=== PATIENT | female | born 1955 | race Caucasian/White ===

== ENCOUNTER 2022-06-16 07:03 | Observation (INO) | payer MEDICARE, OTHER ==
[~2022-06-16] VITALS: Ht 167.6 cm; Wt 91.6 kg
[2022-06-16 08:12] VITALS: BP 134/76; PULSE 79; TEMP 97.2
[2022-06-16] MEDS ORDERED: LEXAPRO 10MG10 MG PO (08:50)
[2022-06-16] MEDS ORDERED: MOBIC15 MG PO (08:50)
[2022-06-16] MEDS ORDERED: GLUCOSAMINE & C1 CA2 PO (08:51)
[2022-06-16] MEDS ORDERED: OMEGA-3 FISH1000 MG PO (08:51)
[2022-06-16] MEDS ORDERED: CALCIUM 600MG+D1 TAB PO (08:52)
[2022-06-16] MEDS ORDERED: MASON NATURAL2000 IU PO (08:53)
[2022-06-16] MEDS ORDERED: IRON TABLETS325 MG PO (08:54)
[2022-06-16] MEDS ORDERED: HCTZ12.5TAB PO (08:54)
[2022-06-16 15:20] VITALS: BP 134/79; PULSE 69; TEMP 97.1
[2022-06-16 16:00] VITALS: BP 131/67; PULSE 69; TEMP 97.1
[2022-06-16 20:05] VITALS: BP 133/59; PULSE 91; TEMP 98.5
[2022-06-17 00:33] VITALS: BP 115/61; PULSE 78; TEMP 98.6
[2022-06-17 03:45] VITALS: BP 113/62; PULSE 74; TEMP 97.8
[2022-06-17 07:06] LABS: BASO % 0.1 % (0.0-2.0); EOS % 0.1 % (0.0-4.0); GRAN # 7.4 K/mm3 (1.4-6.5); GRAN % 79.4 % (42.2-75.2); HEMOGLOBIN 10.1 g/dl (12.5-16.0); LYMPH # 0.9 K/mm3 (1.2-3.4); MEAN CELL VOLUME 85 fl (80.0-100.0); MEAN CORPUSCULAR HEMOGLOBIN 29 pg (27-31); MEAN CORPUSCULAR HGB CONC 34 g/dl (33.0-37.0); MEAN PLATELET VOLUME 10.1 fl (7.4-10.4); MONO # 0.9 K/mm3 (0.1-0.6); MONO % 9.8 % (1.7-9.3); PLATELET COUNT 208 K/mm3 (130-400); RED BLOOD COUNT 3.48 M/mm3 (4.10-5.30); REDCELL DISTRIBUTION WIDTH-CV 13.5 % (11.5-14.5)
[2022-06-17 07:17] LABS: ALBUMIN 3.1 gm/dL (3.4-4.8); BILIRUBIN,TOTAL 0.4 mg/dL (0.2-1.2); CALCIUM 8.3 mg/dL (8.4-10.2); CREATININE, serum 0.7 mg/dL (0.57-1.11); POTASSIUM 3.8 mmol/L (3.5-4.5)
[2022-06-17 07:26] LABS: HEMATOCRIT 29.6 % (37.0-47.0)
[2022-06-17 07:33] VITALS: BP 126/59; PULSE 70; TEMP 97.9
[2022-06-17 12:13] VITALS: BP 141/68; PULSE 70; TEMP 97.6
[2022-06-17 16:44] VITALS: BP 142/68; PULSE 65; TEMP 97.4
[2022-06-17 20:04] VITALS: BP 146/68; PULSE 76; TEMP 98
[2022-06-18 00:26] VITALS: BP 123/66; PULSE 72; TEMP 97.8
[2022-06-18 04:33] VITALS: BP 95/58; PULSE 90; TEMP 97.9
[2022-06-18 05:46] VITALS: BP 115/68; PULSE 85; TEMP 98
[2022-06-18 06:43] LABS: HEMATOCRIT 27.9 % (37.0-47.0); HEMOGLOBIN 9.2 g/dl (12.5-16.0)
[2022-06-18 07:10] LABS: CALCIUM 8.3 mg/dL (8.4-10.2); CREATININE, serum 0.68 mg/dL (0.57-1.11); POTASSIUM 3.8 mmol/L (3.5-4.5)
[2022-06-18 07:46] VITALS: BP 106/41; PULSE 80; TEMP 97.7
[2022-06-18] MEDS ORDERED: ULTRAM ER100 MG PO ×2 (08:35→08:40)
[2022-06-18] MEDS ORDERED: CEPHALEXIN500 M1 PO ×2 (08:36→08:40)
[2022-06-18 12:28] VITALS: BP 120/50; PULSE 75; TEMP 98.8
== END 2022-06-18 18:14 | disposition home or self-care (01) ==
LOC: SDCO 07:03 → SURG 15:30 → SDCO 06-17 12:05 → SURG 06-17 12:06
PROVIDERS: Student in an Organized Health Care Education/Training Program; ADMIT Orthopaedic Surgery
DX: M17.11 Unilateral primary osteoarthritis, right knee (principal); R33.9 Retention of urine, unspecified; I10 Essential (primary) hypertension; F32.A Depression, unspecified; G47.33 Obstructive sleep apnea (adult) (pediatric); D64.9 Anemia, unspecified; Z79.899 Other long term (current) drug therapy; Z96.642 Presence of left artificial hip joint
CPT/HCPCS: OP; 99232-AI; A9284; C1713; C1776; G0378; J0690; J1100; J1580; J1885; J2175; J2250; J2270; J2704; J2795; J3010; J7120

== ENCOUNTER 2022-07-12 15:45 | Emergency (ER) | payer MEDICARE, OTHER ==
[~2022-07-12] VITALS: Ht 167.6 cm; Wt 90.9 kg
[~2022-07-12 15:45] MED LIST: CALCIUM 600MG+D1 TAB PO; CEPHALEXIN500 M1 PO; GLUCOSAMINE & C1 CA2 PO; HCTZ12.5TAB PO; IRON TABLETS325 MG PO; LEXAPRO 10MG10 MG PO; MASON NATURAL2000 IU PO; MOBIC15 MG PO; OMEGA-3 FISH1000 MG PO; ULTRAM ER100 MG PO
[2022-07-12 16:08] VITALS: TEMP 98.4
[2022-07-12] MEDS ORDERED: ULTRAM 50MG TAB50 MG PO (17:11)
[2022-07-12 17:45] VITALS: BP 140/64; PULSE 88
== END 2022-07-12 17:45 | disposition home or self-care (01) ==
LOC: COL.ER 15:45
DX: M25.561 Pain in right knee (principal); Z96.652 Presence of left artificial knee joint; Z88.5 Allergy status to narcotic agent

== ENCOUNTER 2022-07-17 09:16 | Day surgery (SDC) | payer MEDICARE, OTHER ==
[2022-07-17] VITALS (7 sets, daily range): BP systolic 146–169; BP diastolic 64–79; PULSE 70–91; TEMP 97.5–98.1
[~2022-07-17] VITALS: Ht 167.6 cm; Wt 90.0 kg
[~2022-07-17 09:16] MED LIST changes: +ULTRAM 50MG TAB50 MG PO
[2022-07-17] MEDS ORDERED: NORCO 325 MG-51 TAB PO (10:50)
--- NOTE | 2022-07-17 14:04 | NUR ---
Verbal report received; pt arrived from PACU sleepy but stable; first set of vital signs WNL; to continue to monitor.
--- NOTE | 2022-07-17 14:06 | NUR ---
Patient and dedicated local truck driver verbalized they both felt comfortable starting the discharge process.
== END 2022-07-17 14:45 | disposition home or self-care (01) ==
LOC: SDCO 09:16
DX: M25.561 Pain in right knee (principal); M79.604 Pain in right leg; G47.33 Obstructive sleep apnea (adult) (pediatric); C50.912 Malignant neoplasm of unspecified site of left female breast; Z79.01 Long term (current) use of anticoagulants; Z96.653 Presence of artificial knee joint, bilateral; Z79.52 Long term (current) use of systemic steroids
CPT/HCPCS: J1100; J1885; J2405; J2704; J3010; J7120

== ENCOUNTER 2022-08-07 11:01 | Day surgery (SDC) | payer MEDICARE, OTHER ==
[~2022-08-07] VITALS: Ht 167.6 cm; Wt 91.4 kg
[2022-08-07] VITALS (12 sets, daily range): BP systolic 103–159; BP diastolic 41–713; PULSE 69–98; TEMP 98–98.8
[~2022-08-07 11:01] MED LIST changes: +NORCO 325 MG-51 TAB PO
[2022-08-07] MEDS ORDERED: TYLENOL 500MG500 MG PO (12:23)
[2022-08-07 14:22] LABS: MEAN CELL VOLUME 90 fl (80.0-100.0); MEAN CORPUSCULAR HGB CONC 32 g/dl (33.0-37.0); MEAN PLATELET VOLUME 9.2 fl (7.4-10.4); PLATELET COUNT 266 K/mm3 (130-400); RED BLOOD COUNT 2.94 M/mm3 (4.10-5.30); REDCELL DISTRIBUTION WIDTH-CV 13.2 % (11.5-14.5)
[2022-08-07 14:23] LABS: HEMOGLOBIN 8.5 g/dl (12.5-16.0); MEAN CORPUSCULAR HEMOGLOBIN 29 pg (27-31)
[2022-08-07 14:24] LABS: HEMATOCRIT 26.3 % (37.0-47.0)
[2022-08-07 14:50] LABS: BAND 2 % (0-10); EOSINOPHIL 2 % (0-4); LYMPHOCYTE 29 % (20.0-51.0); NEUTROPHILS 61 % (42.0-75.2); PLATELET ESTIMATE NORMAL (NORMAL)
--- NOTE | 2022-08-07 16:43 | NUR ---
PT TO ROOM 328 PER BED WITH REPORT FROM [facility] PACU @1600. PT IS DROWSEY BUT AROUSES TO VERBAL. LUNGST CTA, BOWEL SOUNDS PRESENT. OCLUSIVE KAMILA WRAP OVER DRESSING. PEDAL PULSES PALPABLE. IV TO RFA, SCDS PLACED BILATERALLY. PT DENIES PAIN OR NEEDS AT THIS TIME. PT'S FRIEND AT BEDSIDE.
--- NOTE | 2022-08-07 18:59 | NUR ---
RECEIVED CHANGE OF SHIFT REPORT FROM DAY SHIFT RN.
[2022-08-08 04:30] VITALS: BP 96/46; PULSE 75; TEMP 98.7
[2022-08-08 05:25] VITALS: BP 117/52; PULSE 77
--- NOTE | 2022-08-08 07:08 | NUR ---
CHANGE OF SHIFT REPORT GIVEN TO DAY SHIFT RNYOHANNES.
[2022-08-08 07:43] LABS: CALCIUM 8.2 mg/dL (8.4-10.2); CREATININE, serum 0.7 mg/dL (0.57-1.11); POTASSIUM 3.6 mmol/L (3.5-4.5)
[2022-08-08 07:58] VITALS: BP 124/66; PULSE 77; TEMP 98.5
--- NOTE | 2022-08-08 09:41 | NUR ---
Pt doing okay this morning. She has been up walking with PT and is now working with OT. PRN pain medication given prior to therapy sessions. Pt breakfast arrived a while ago, but she has yet to eat it.
--- NOTE | 2022-08-08 11:15 | NUR ---
Kiara: Shira Situation: dressed poultry grader stopped by room on rounds Background: Pt was resting and content in her chair Assessment: Pt asked for prayer, dressed poultry grader prayed with her and her friend. Pt appreciated the visit Recommendation: Header Operator will follow up as needed
[2022-08-08] MEDS ORDERED: ASPIRIN 81M81 MG/TA2 PO (11:21)
[2022-08-08] MEDS ORDERED: CEPHALEXIN500 M1 PO (11:23)
[2022-08-08] MEDS ORDERED: ULTRAM 50MG TAB50 MG PO (11:24)
[2022-08-08 11:43] VITALS: BP 140/52; PULSE 76; TEMP 99
--- NOTE | 2022-08-08 12:30 | NUR ---
Pt having complaints of feeling a little light headed when she stands up. Assisted her back to bed at this time. Pt did well with one assist, slow movement. Pt does have her friend/ride in the room. Friend states that she does not think pt should be going home today. Called and notified Alisha MORELAND with Dr Mims. No new orders at this time
[2022-08-08 13:23] LABS: BASO % 0.3 % (0.0-2.0); EOS # 0.2 K/mm3 (0.0-0.7); EOS % 3.9 % (0.0-4.0); GRAN # 3.9 K/mm3 (1.4-6.5); GRAN % 67.4 % (42.2-75.2); LYMPH % 17.2 % (20.0-51.0); MEAN CELL VOLUME 89 fl (80.0-100.0); MEAN CORPUSCULAR HGB CONC 33 g/dl (33.0-37.0); MEAN PLATELET VOLUME 8.9 fl (7.4-10.4); MONO # 0.6 K/mm3 (0.1-0.6); MONO % 10.9 % (1.7-9.3); PLATELET COUNT 256 K/mm3 (130-400); RED BLOOD COUNT 3.42 M/mm3 (4.10-5.30); REDCELL DISTRIBUTION WIDTH-CV 13.2 % (11.5-14.5)
[2022-08-08 13:24] LABS: HEMATOCRIT 30.5 % (37.0-47.0); HEMOGLOBIN 9.9 g/dl (12.5-16.0); MEAN CORPUSCULAR HEMOGLOBIN 29 pg (27-31)
[2022-08-08 13:43] LABS: ALBUMIN 3.3 gm/dL (3.4-4.8); BILIRUBIN,TOTAL 0.3 mg/dL (0.2-1.2); CALCIUM 8.8 mg/dL (8.4-10.2); CREATININE, serum 0.74 mg/dL (0.57-1.11); POTASSIUM 3.9 mmol/L (3.5-4.5); TOTAL PROTEIN 6.4 gm/dL (6.2-8.1)
[2022-08-08 15:21] VITALS: BP 129/54; PULSE 86; TEMP 98.2
--- NOTE | 2022-08-08 15:55 | NUR ---
ball worker met with patient to complete intake. Patient reports that she lives at home along in [place], [place] alone. She is independent with her ADL's and utilizes a walker to assist with ambulation. Patient has no daytime oxygen needs, but does utilize a CPAP at night. PCP is Dr. Cathy Burciaga and she will utilizes [facility] in [facility] for any medications she will be discharged with. Patient reports that she does have a [employer] established listing her cousin Armando [phone] as her agent. She reports that she has therapy set up at [facility] in [place], [place]. Discharge plan: Home with outpatient PT
--- NOTE | 2022-08-08 16:22 | NUR ---
Alisha PA with Dr Mims called. Pt reports that she still feels "whoozy" when she sits up. Pt does not have much energy. Her friend has remained at bedside most of the day. Updated Alisha regarding this. Orders to keep her over night
--- NOTE | 2022-08-08 19:36 | NUR ---
RECEIVED CHANGE OF SHIFT REPORT FROM DAY SHIFT RN.
[2022-08-08 20:42] VITALS: BP 136/54; PULSE 86; TEMP 99.6
[2022-08-09 00:01] VITALS: BP 137/58; PULSE 80; TEMP 98.6
[2022-08-09 03:40] VITALS: BP 140/61; PULSE 81; TEMP 97.6
[2022-08-09 06:53] LABS: CALCIUM 8.6 mg/dL (8.4-10.2); CREATININE, serum 0.67 mg/dL (0.57-1.11)
--- NOTE | 2022-08-09 07:36 | NUR ---
CHANGE OF SHIFT REPORT GIVEN TO DAY SHIFT RNFLORI.
[2022-08-09 08:07] VITALS: BP 131/59; PULSE 79; TEMP 98.9
--- NOTE | 2022-08-09 13:03 | NUR ---
Morgue Librarian rounds: Morgue Librarian visit completed. Patient expected to go home today; was waiting for to arrive to take her home. Conversation and prayer. Patient thanked guide dog mobility instructor for the visit.
--- NOTE | 2022-08-09 17:24 | NUR ---
PT DISMISSED TODAY TO HOME, PT EDUCATED ON DISMISSAL INSTRUCTIONS/MEDICATION INSTRUCTIONS/FOLLOW UP INSTRUCTIONS, PT AND PT'S SISTER PRESENT AT BEDSIDE AT TIME OF EDUCATION, PT AND PT'S SISTER DENIES QUESTIONS/CONCERNS AT TIME OF DISMISSAL, PT TRANSPORTED TO EXIT PER , NO FURTHER CONCERNS
== END 2022-08-09 17:26 | disposition home or self-care (01) ==
LOC: SDCO 11:01 → SURG 16:00 → SDCO 08-09 17:26
PROVIDERS: Orthopaedic Surgery; Physician Assistant
DX: T84.84XA Pain due to internal orthopedic prosthetic devices, implants and grafts, initial encounter (principal); M79.604 Pain in right leg; G47.33 Obstructive sleep apnea (adult) (pediatric); Z79.01 Long term (current) use of anticoagulants; Z85.3 Personal history of malignant neoplasm of breast; D64.9 Anemia, unspecified; D72.819 Decreased white blood cell count, unspecified; I10 Essential (primary) hypertension; F32.A Depression, unspecified; Z79.899 Other long term (current) drug therapy
CPT/HCPCS: OP; A9284; C1713; C1776; J0690; J1580; J1885; J2250; J2270; J2370; J2405; J2704; J2795; J3010; J7030; J7120